=== PATIENT | female | born 1970 | race Caucasian/White ===

== ENCOUNTER 2023-08-24 20:54 | Emergency (ER) | payer OTHER, SELFPAY ==
[2023-08-24 21:16] LABS: Urine Albumin Negative (Neg - Trace); Urine Bilirubin Negative (Negative); Urine Character Clear (Clear); Urine Color Yellow; Urine Glucose Negative (Negative); Urine Ketone Negative (Negative); Urine Leukocyte Negative (Negative); Urine Nitrite Negative (Negative); Urine Occult Blood Negative (Negative); Urine Urobilinogen Negative (Neg - 1+)
[2023-08-24 21:19] LABS: % Basophils 0.7 % (0-2); % Eosinophils 1.5 % (0-6); % Immature Granulocytes 0.4 % (0-0.5); % Lymphocytes 19.2 % (20.5-51.1); % Monocytes 8.2 % (1.7-9.3); Absolute Basophils 0.1 10^3/uL (0-0.2); Absolute Eosinophils 0.2 10^3/uL (0-0.7); Absolute Immature Granulocytes 0.1 10^3/uL (0-0.05); Absolute Lymphocytes 2.6 10^3/uL (1.2-3.4); Absolute Monocytes 1.1 10^3/uL (0.1-0.6); Absolute Neutrophils 9.3 10^3/uL (1.4-6.5); Hemoglobin 13.9 g/dL (12.0-16.0); Mean Corp Hgb Conc. 34.8 g/dL (33.0-37.0); Mean Corpuscular Hgb 33.1 pg (27.0-31.0); Mean Corpuscular Volume 95.2 fL (81.0-99.0); Nucleated Red Blood Cells % 0 %; Platelet Count 280 10^3/uL (130-400); Red Cell Dist. Width 12.8 % (11.5-14.5); White Blood Cell Count 13.4 10^3/uL (4.8-10.8)
[2023-08-24 21:36] LABS: ALT (SGPT) 15 U/L (0-35); AST (SGOT) 25 U/L (14-36); Albumin 5.2 g/dl (3.5-5.0); Alkaline Phosphatase 65 U/L (38-126); Blood Urea Nitrogen 11 mg/dl (7-17); Calcium 10.6 mg/dl (8.4-10.2); Carbon Dioxide 27 mmol/L (22-30); Chloride 100 mmol/L (98-107); Glucose 105 mg/dl (70-99); Potassium 4.4 mmol/L (3.5-5.1); Sodium 137 mmol/L (135-145); Total Bilirubin 1.1 mg/dl (0.2-1.3); Total Protein 7.7 g/dl (6.3-8.2); eGFR > 60.00
--- NOTE | 2023-08-24 23:16 | ED.GENMED ---
History of Present Illness
General
Chief Complaint: Abdominal Pain
Source: patient
Exam Limitations: none
Time Seen by Provider: 08/24/23 23:01
Nursing documentation reviewed up to this point in time: agreed with
History of Present Illness
History of Present Illness:
Pleasant 52-year-old female presents with lower abdominal pain that has been intermittent for the last 2 days. She states that she has taken Gas-X but that has not provided much relief. Tonight the pain came back worse than ever. She states that
she had some mucousy blood in her stool yesterday but that was self-limited. Denies. Denies chest pain or shortness of breath. Reports no fever or chills. Patient accompanied by her .
Vital signs are stable. Patient not hypoxic
Nursing note reviewed. I agree with nursing documentation up to this point in time.
Home Meds and allergies reviewed.
NUMBER AND COMPLEXITY OF PROBLEMS ADDRESSED AT THE ENCOUNTER
� Chronic conditions affecting care: Bipolar, tobacco abuse
� Acute Exacerbation and/or Progression of Chronic Illness:
� Differential Diagnosis includes: UTI, colitis, appendicitis, diverticulitis
AMOUNT AND/OR COMPLEXITY OF DATA TO BE REVIEWED AND ANALYZED
I performed an independent evaluation of the following and my interpretation is:
EKG:
CT:
X-rays:
Ultrasound:
Laboratory Studies: Urinalysis normal, 13.4 white blood cell count
Other:
Review of other/old records:
Clinical information was obtained by an independent historian:
Prescriptions/Medications Considered but not given:
Further testing considered but not performed:
RISK OF COMPLICATIONS AND/OR MORBIDITY OR MORTALITY OF PATIENT MANAGEMENT
Social determinants of health affecting care: Good Social Support at the bedside
Discussion with other providers:
Escalation of care including admission/observation vs risk of discharge considered:
CRITICAL CARE NOTE:
Total Time (exclusive of procedures):
Update:
Past History
Past History
ED Past Medical History: GERD
ED Past Surgical History: None
Review of Systems
Review of Systems
Allergies reviewed?: Yes
Other source history: family
All Other Systems: ROS reviewed and negative except as documented in HPI and ROS
ABD/GI: Reports abdominal pain and bloody stools (x1 yesterday); Denies nausea, vomiting, diarrhea or constipated
Phy Exam
General Physical Exam
General Presentation: well appearing and moderate distress
General Skin: warm and dry
General Habitus: normal
General Mental: alert
General Hydration: appears well hydrated
ENT Exam
ENT Exam: EOMI, pharynx normal, neck supple and normocephalic
Eye Exam
Eye Exam: PERRL, cornea clear and conjunctiva normal
Cardiovascular Exam
Cardiovascular Exam: regular rate/rhythm, no edema, no murmur and normal peripheral pulses
Pulmonary Exam
Pulmonary Exam: lungs clear, no respiratory distress, no rales, no crackles, no rhonchi, no stridor, no wheezing and no cough
Gastrointestinal Exam
Gastrointestinal Exam: normal bowel sounds, non tender, soft, no organomegaly, no pulsatile mass and non distended
Palpation: left lower quadrant: Mild tenderness and right lower quadrant: Mild tenderness
Auscultation of Abdomen: normal
Neurological Exam
Neurological Exam: alert, oriented x3, no motor deficits and speech normal
Musculoskeletal Exam
Musculoskeletal Exam: full ROM and no edema
Skin Exam
Skin Exam: normal color, warm/dry, no rash and no petechia
Psychiatric Exam
Psychiatric Exam: normal mood/affect
Course
Orders/Labs/Results
Orders:
Orders
08/24/23 21:05
CMP [Comprehensive Metabolic Panel] Urgent
Complete Blood Count/With Diff Urgent
Urinalysis Urgent
Date Specimen was Collected: 08/24/23
Time Specimen was Collected: 20:59
08/24/23 23:22
Morphine Sulfate 4 mg IV NOW STA
Ondansetron Injectable [Zofran] 4 mg IV NOW STA
08/24/23 23:26
0.9% Sodium Chloride 1000 ml [Nss] 1,000 ml IV BOLUS
08/25/23 00:15
CT Abd/pelvis W Iv Cont Urgent
Reason For Exam: lower abd pain
Abnormal Lab Results
08/24/23
21:05
WBC 13.4 H 10^3/uL
(4.8-10.8)
MCH 33.1 H pg
(27.0-31.0)
Abs Immat Gran (auto) 0.1 H 10^3/uL
(0-0.05)
Absolute Neuts (auto) 9.3 H 10^3/uL
(1.4-6.5)
Absolute Monos (auto) 1.1 H 10^3/uL
(0.1-0.6)
Lymphocytes % 19.2 L %
(20.5-51.1)
Glucose 105 H mg/dl
(70-99)
Calcium 10.6 H mg/dl
(8.4-10.2)
Albumin 5.2 H g/dl
(3.5-5.0)
08/24/23 21:05
08/24/23 21:05
Vital Signs
Initial and Last Documented VS:
Initial Vital Signs
Temp Pulse Resp BP Pulse Ox
98.7 F 104 28 192/106 98
08/24/23 20:56 08/24/23 20:56 08/24/23 20:56 08/24/23 20:56 08/24/23 20:56
Last Documented Vital Signs
Temp Pulse Resp BP Pulse Ox
98.7 F 88 18 118/69 92
08/24/23 20:56 08/24/23 23:30 08/24/23 23:30 08/25/23 00:00 08/25/23 00:00
*Critical Care Note
Total Time (30-74mins, 75-104mins- exclusive of procedures): Not Applicable
Update Note
Update Note:
CT A/P W/IV CONTRAST
IMPRESSION:
Comparison with 04/08/2007.
Sigmoid diverticulitis. Moderate wall thickening and stranding along the margins of the sigmoid colon. No free fluid or free air. No abscess formation.
No appendicitis.
No evidence of small bowel obstruction.
No evidence of hydroureteronephrosis or obstructing stone.
Unremarkable appearance of the pelvic viscera.
No AAA.
Case finalized at 103am ET.
ED Attending Note
-
Portions of this chart may have been created with voice recognition software.� Occasional wrong word or��sound alike� substitutions may have occurred due to the inherent limitations of voice recognition software.
Discharge Plan
Departure
Patient Disposition: Home (Routine Discharge)
Date of Disposition: 08/25/23
Time of Disposition: 01:10
Patient with high blood pressure during this ER visit?: No
Discharge Problem:
Sigmoid diverticulitis
Instructions: Clear Liquid Diet, Diverticulitis (DC), Abdominal Pain
Prescriptions:
New
levofloxacin 750 mg tablet
750 mg PO DAILY 10 Days Qty: 10 0RF
metronidazole 500 mg tablet
500 mg PO TID Qty: 30 0RF
oxycodone-acetaminophen [Percocet] 5-325 mg tablet
1 tab PO Q6HPRN PRN (Reason: pain) Qty: 7 0RF
No Action
lamotrigine [Lamictal] 200 mg Tablet
200 mg PO DAILY
mirtazapine 30 mg Tablet
30 mg PO HS
Referrals:
Gayla Velazquez MD [Family Provider] -
Activity Restrictions/Additional Instructions:
Your prescriptions were sent electronically to the pharmacy that you specified.
It was a pleasure meeting you and taking part in your care. We hope for your continued healing and wellness.
Please read discharge instructions in their entirety. However, they are for general education and may not describe your exact diagnosis at discharge. Information on your ER visit and medical conditions were discussed with you along with appropriate
follow up information...
If indicated, please take your medications as instructed and indicated on discharge paperwork.
Please schedule a follow up appointment as directed. Call to schedule an appointment
Please return to the emergency department with ANY change in, persisting, or worsening of symptoms. If any of your symptoms do not improve, or persist, or become more severe within 6-12 hours, please return to the emergency department for further
care.
Please return to the emergency department if you develop a headache, neck pain/stiffness, fever greater than 100.4F, chest pain, shortness of breath, persistent nausea, vomiting, slurred speech, difficulty walking, numbness/tingling, weakness, signs
of infection or any other symptoms that are worrisome to you.
If you have any questions or concerns please do not hesitate to call the Hospital at or E-mail me directly at [email or web address]
Interventions
Interventions:
*Risk Screen - Suicide Last Done: 08/24/23 20:56
*General Assessment Last Done: 08/24/23 21:36
*Neglect/Abuse Screening Last Done: 08/24/23 20:56
ED- Fall Risk Assessment Last Done: 08/24/23 21:38
*ED COVID-19 Vaccine History Last Done: 08/24/23 21:36
[facility] Assessment Last Done: 08/24/23 21:38
Discharge Date and Time
Print Language: GREENLANDIC
[2023-08-24] MEDS: ZOFRAN 4 MG IV (23:26)
[2023-08-24] MEDS: MORPHINE SULFATE 4 MG IV (23:27)
[2023-08-24] MEDS: NSS 1000 IV (23:27)
[2023-08-25] MEDS: FLAGYL 500 MG PO (01:14)
[2023-08-25] MEDS: LEVAQUIN 750 MG PO (01:14)
[2023-08-25] MEDS: PERCOCET 5/325 1 TABLET PO (01:19)
== END 2023-08-25 01:29 | disposition home or self-care (01) ==
LOC: EMR 20:54
PROVIDERS: Emergency Medicine; EMERGENCY PHYSICIAN Student in an Organized Health Care Education/Training Program; FAMILY PHYSICIAN Internal Medicine
DX: R10.30 Lower abdominal pain, unspecified (principal); K21.9 Gastro-esophageal reflux disease without esophagitis; K57.32 Diverticulitis of large intestine without perforation or abscess without bleeding
CPT/HCPCS: 99283; 96374; 96375; 96361; 74177; 80053; 81003; 85025; Q9967